=== PATIENT | male | born 1940 | race Caucasian/White ===

== ENCOUNTER 2018-01-04 06:39 | Emergency (ER) | payer OTHER ==
[~2018-01-04] VITALS: Ht 170.2 cm; Wt 91.6 kg
[2018-01-04] MEDS ORDERED: NORFLEX100 MG PO (07:03)
[2018-01-04] MEDS ORDERED: FISH OIL 1,001000 M2 PO (07:18)
[2018-01-04] MEDS ORDERED: ASPIR 8181 MG PO (07:18)
[2018-01-04] MEDS ORDERED: TRIAMCINOLONE A80 G2 TOP (07:19)
[2018-01-04] MEDS ORDERED: OMEPRAZOLE 20 M20 M1 PO (07:20)
[2018-01-04] MEDS ORDERED: VOLTAREN GEL 1100 G2 TRANSDERM (07:20)
[2018-01-04] MEDS ORDERED: CLOBETASOL PROP60 G3 TOP (07:20)
[2018-01-04] MEDS ORDERED: LIPITOR 20 MG T20 M1 PO (07:21)
[2018-01-04] MEDS ORDERED: LISINOPRIL20 MG PO (07:22)
[2018-01-04] MEDS ORDERED: ZOFRAN ODT4 MG PO (07:22)
[2018-01-04] MEDS ORDERED: LOMOTIL TABLET1 EACH PO (07:22)
[2018-01-04] MEDS ORDERED: NORCO 10-325 T1 EACH PO (07:23)
[2018-01-04] MEDS ORDERED: AMBIEN 5 MG TABL5 M1 PO (07:23)
[2018-01-04 07:32] VITALS: BP 163/71
== END 2018-01-04 07:20 | disposition home or self-care (01) ==
LOC: ER 06:39
DX: S76.811A Strain of other specified muscles, fascia and tendons at thigh level, right thigh, initial encounter (principal); M19.90 Unspecified osteoarthritis, unspecified site; K21.9 Gastro-esophageal reflux disease without esophagitis; Z95.1 Presence of aortocoronary bypass graft; Z88.0 Allergy status to penicillin; X58.XXXA Exposure to other specified factors, initial encounter; Y93.89 Activity, other specified; Y92.89 Other specified places as the place of occurrence of the external cause; Y99.8 Other external cause status